=== PATIENT | male | born 1970 | race African-American/Black ===

== ENCOUNTER 2017-01-21 19:58 | Inpatient (IN) ==
--- NOTE | 2017-01-21 20:26 | Emergency Department Note ---
Arrival - Arrival Chief Complaint: Chest Pain Stated Complaint: chest pains/sob ED Nursing Triage Note: patient c/o sharp left sided cp and shortness of breath that gets worse while taking a deep breath and upon movement. 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 The patient is concerned about possible recurrent pulmonary embolus. Allergies/Adverse Reactions: Allergies Allergy/AdvReac Type Severity Reaction Status Date / Time No Known Allergies Allergy Verified 01/21/17 20:07 Home Medications: Home Medications Medication Instructions Recorded Confirmed Type Aspirin [Ecotrin] 81 mg PO DAILY 01/21/17 01/21/17 History Review of System - Review of System Constitutional: Absent: fever, night sweats Eyes: Absent: redness, vision change, other Head/Ears/Nose/Throat: Absent: epistaxis, nasal drainage Respiratory: Present: other (Shortness of breath). Absent: respiratory distress , wheezing Cardiovascular: Present: chest pain, other Gastrointestinal: Absent: diarrhea, constipation Genitourinary male: Absent: hematuria, discharge Musculoskeletal: Absent: joint swelling, lower back pain Skin: Absent: change in color, change in hair/nails Neurological: Absent: numbness, paresthesias Psychiatric: Absent: suicidal thoughts, homicidal thoughts Endocrine: Absent: heat intolerance, polydipsia Hematological/Lymphatic: Absent: easy bruising, lymphadenopathy Allergic/Immunologic: Absent: urticaria, itchy eyes Medical,Surgical,& Family Hx - Medical History Respiratory: History of: Pulmonary Embolism - Social History Smoking Status: Smoker, status unknown Frequency of Alcohol Use: Occasionally Type of Drug Use: None Exam Vital Signs: Vital Signs Temperature 98.1 F 01/24/17 04:00 Pulse Rate 74 01/24/17 04:00 Respiratory Rate 20 01/24/17 06:05 Blood Pressure 136/81 01/24/17 04:00 O2 Sat by Pulse Oximetry 94 L 01/24/17 04:00 - General Exam limited due to: ALOC General appearance: alert - Eye Eye exam: Present: PERRL, EOMI - ENT ENT exam: Present: normal exam, normal oropharynx - Neck Neck exam: Present: normal inspection, full ROM - Chest Chest inspection: Present: normal inspection - Respiratory Respiratory exam: Present: normal lung sounds bilaterally - Cardiovascular Cardiovascular exam: Present: tachycardia - Abdominal Exam Abdominal exam: Present: soft, normal bowel sounds - Rectal Exam Rectal exam: Present: deferred - Back Exam Back exam: Present: normal inspection, full ROM - Neurological Exam Neurological exam: Present: alert, oriented X3, CN II-XII intact - Psychiatric Psychiatric exam: Present: normal affect - Skin Skin exam: Present: dry Results - Labs CBC & BMP: 01/22/17 04:55 01/21/17 20:31 Disposition Disposition: Still a Patient
[2017-01-21 20:38] LABS: Basophils # 0.1 10*3/uL (0.0-0.2); Basophils % 0.4 % (0.0-0.8); Eosinophils % 0.3 % (0.00-10.9); Hematocrit 40.6 VOL% (42.0-52.0); Hemoglobin 13.7 GM/DL (14.0-18.0); Immature Granulocytes % 0.2 %; Immature Granulocytes Absolute 0.03 #; Lymphocytes # 2.4 10*3/uL (1.4-4.0); Lymphocytes % 17.5 % (21.2-54.2); Mean Corpuscular HGB Conc 33.7 GM/DL (32-36); Mean Corpuscular Hemoglobin 31 PG (27-34); Mean Corpuscular Volume 90.6 FL (87-102); Mean Platelet Volume 8.9 FL (9.6-12.0); Monocytes # 1.2 10*3/uL (0.11-0.8); Monocytes % 8.7 % (1.7-12.7); Neutrophils # 9.8 10*3/uL (1.4-7.4); Neutrophils % 72.9 % (38.7-73.9); Platelet Count 274 T/CUMM (130-400); Red Blood Count 4.48 MC/CUMM (3.8-5.5); White Blood Count 13.4 T/CUMM (4-12)
[2017-01-21 21:05] LABS: Alanine Aminotransferase 24 U/L (16-61); Albumin 3.8 G/DL (3.4-5.0); Alkaline Phosphatase 73 U/L (45-117); Aspartate Amino Transferase 13 U/L (0-37); Bilirubin,Total < 0.39 MG/DL (0.2-1.0); Blood Urea Nitrogen 14 MG/DL (7-18); Calcium 9.2 MG/DL (8.5-10.1); Glucose 105 MG/DL (74-106); Osmolality,Calculated 275.7 MOS/KG (273-304); Potassium 3.9 MMOL/L (3.5-5.1); Sodium 138 MMOL/L (136-145); Total Protein 7.4 G/DL (6.4-8.3)
[2017-01-21] MEDS ORDERED: ONDANSETRON 4 MG/2 ML VIAL IV PRN (22:56)
[2017-01-21] MEDS ORDERED: ACETAMINOPHEN 325 MG TABLET PO PRN (22:56)
[2017-01-21] MEDS ORDERED: HEPARIN 5,000 UNIT/1 ML VIAL IV ONE (23:05)
[2017-01-21] MEDS ORDERED: MORPHINE 2 MG/1 ML SYRINGE IV STA (23:10)
[2017-01-21] MEDS ORDERED: ONDANSETRON 4 MG/2 ML VIAL IV STA (23:11)
--- NOTE | 2017-01-21 23:11 | Hospitalist History & Physical ---
Assessment and Plan (1) Pulmonary embolism Status: Acute Assessment and plan: Possibly from the the DVT right leg I will check venous Dopplers but start on heparin infusion. Patient does seem to have a provoked thromboembolic event but if DVT is negative he may need to be evaluated for hypercoagulable state. I have ordered for the baseline PT PTT and then start on IV infusion following the loading dose. PT OT will be monitored per protocol Current Visit: Yes (2) Elevated blood pressure reading Status: Acute Assessment and plan: Patient has elevated blood pressure without any known hypertension. He is not on any medication. I will start on low sodium diet he does seem to have a stage II have hypertension if his repeat blood pressure elevated like this is in in the morning. Since he is asymptomatic for his hypertension I will wait for repeat blood pressure measurement in the morning and medication to be started if indicated Current Visit: Yes History of Present Illness Chief complaint: Chest pain History of present illness: Mr. Dumont is a 46 year old male with history of pulmonary embolism in past in 2011. He was on Coumadin but stopped last year and placed on aspirin. Patient is a on [place] on [address]. He came to the ER for evaluation of chest pain which is left-sided started yesterday and worse today with some shortness of breath but no cough. Subjective report of some fever yesterday. In ER patient was evaluated noted WBC 13.4 but afebrile with a temp 99.2 heart rate in low 100. CT scan of the chest was done and was reported to have a pulmonary embolism which report not available. Patient on inquiry does admit some pain right leg with swelling and he attributed to tendinitis. No nausea vomiting diarrhea or diaphoresis no urinary symptoms. Patient O2 sat was 95% on room air in ER. Troponin level was within normal limit BNP level was 10. I was consulted for admission Home Medications Medication Instructions Recorded Confirmed Type Aspirin [Ecotrin] 81 mg PO DAILY 01/21/17 01/21/17 History Allergies Allergy/AdvReac Type Severity Reaction Status Date / Time No Known Allergies Allergy Verified 01/21/17 20:07 Medical,Surgical,& Family Hx - Medical History Respiratory: History of: Pulmonary Embolism - Surgical History Surgical History: noncontributory - Family History Additional Family History: No history of thromboembolic event in the family - Social History Smoking Status: Current some day smoker Frequency of Alcohol Use: Occasionally Type of Drug Use: None 12 point system: reviewed and no additional remarkable complaints except as stated (Noted in HPI) Exam - Constitutional Vitals: Period Temp Pulse Resp BP Sys/Cortez Pulse Ox Last 24 Hr 99.2 F-99.2 F 100-105 15-20 170-170/97-97 94 General appearance: morbidly obese, no no acute distress - Head Head exam: Present: normal inspection, normocephalic, atraumatic - Eye Eye exam: Present: EOMI. Absent: conjunctival injection Pupils: Present: BOB, normal accommodation - ENT ENT exam: Present: normal exam, normal oropharynx - Neck Neck exam: Present: normal inspection (Supple), other - Respiratory Respiratory exam: Present: clear to auscultation bilaterally. Absent: accessory muscle use, rales, rhonchi, stridor - Cardiovascular Cardiovascular exam: Present: regular rate and rhythm, tachycardia - GI/Abdominal GI/Abdominal exam: Present: normal bowel sounds, soft. Absent: distended, tenderness - Extremities Exam Extremities exam: Present: edema (Right lower extremity edema present) - Neurological Exam Neurological exam: Present: alert, oriented X3, motor sensory deficit Results - Labs CBC & BMP: 01/21/17 20:31 01/21/17 20:31 Lab Results: I have reviewed the past 24 hour labs Quality Measures - VTE Contraindication to Pharmacological VTE Prophylaxis: Already on Theraputic Agent , No Prophylaxis Needed
[2017-01-21] MEDS ORDERED: MORPHINE 2 MG/1 ML SYRINGE ONE (23:18)
[2017-01-21 23:31] LABS: PT Patient Result 10.4 SECS; Partial Thromboplastin Time 29.4 SECS (0-40)
[2017-01-22] MEDS ORDERED: HYDROmorphone 2 MG/1 ML VIAL IV STA (00:09)
[2017-01-22] MEDS ORDERED: HYDROmorphone 2 MG/1 ML VIAL ONE (00:12)
[2017-01-22] MEDS: HEPARIN DRIP 25,000 UNITS/500 ML PREMIX IV SCH ×3 (01:31→21:01)
[2017-01-22 05:19] LABS: Basophils % 0.3 % (0.0-0.8); Eosinophils % 0.1 % (0.00-10.9); Hematocrit 39.3 VOL% (42.0-52.0); Immature Granulocytes % 0.3 %; Immature Granulocytes Absolute 0.03 #; Lymphocytes # 2.1 10*3/uL (1.4-4.0); Lymphocytes % 17.3 % (21.2-54.2); Mean Corpuscular HGB Conc 33.1 GM/DL (32-36); Mean Corpuscular Hemoglobin 30 PG (27-34); Mean Corpuscular Volume 90.6 FL (87-102); Mean Platelet Volume 9.1 FL (9.6-12.0); Monocytes # 1.2 10*3/uL (0.11-0.8); Monocytes % 10.3 % (1.7-12.7); Neutrophils # 8.6 10*3/uL (1.4-7.4); Neutrophils % 71.7 % (38.7-73.9); Platelet Count 270 T/CUMM (130-400); Red Blood Count 4.34 MC/CUMM (3.8-5.5); Red Cell Distribution Width 13.1 % (9.3-17.3)
--- NOTE | 2017-01-22 08:27 | EKG Report ---
Stationary ECG Study [facility] ER Test Date: 01/21/2017 8:05:57 PM Pat Name: ISREAL ROSARIO Department: Room: 278 Gender: M Chief Cardiopulmonary Technologist: Sherry : 1970 Requested by: Roby Quach Order Number: [id number] Reading MD: MERARY RUIZ Intervals [place] Rate: 106 P: 39 CO: 148 QRS: -12 QRSD: 97 T: 116 QT: 340 QTc: 402 Interpretive Statements SINUS TACHYCARDIA LEFT VENTRICULAR HYPERTROPHY WITH REPOLARIZATION ABNORMALITY Electronically Signed On 01-23-17 07:30:13 CDT by MERARY RUIZ [email or web address]
--- NOTE | 2017-01-22 08:43 | Ultrasound Report ---
History: Pulmonary embolus. Shortness of breath Date: 01/22/2017 Study: Bilateral lower extremity color-flow venous Doppler study Comparison exam: No previous venous ultrasound available Critical test result. Verbal report given to Nicki KEARNEY at 8:10 AM by the planner on behalf of this radiologist. Color Doppler, wave form analysis, and compression analysis of the deep veins of both lower extremities from the common femoral vein level through the popliteal vein level was performed. There is no evidence of deep venous thrombosis on the left. There is abnormal increased intraluminal echogenicity and lack of compression compatible with nonoccluding deep venous thrombosis in the right superficial femoral vein and superior aspect of the right popliteal vein. The right common femoral vein is patent. Waveform analysis is otherwise unremarkable. Ultrasound images were captured and archived Impression: Deep venous thrombosis right lower extremity PROCEDURE INTERPRETED AT [facility] DEPARTMENT OF RADIOLOGY Final Report Signed by: Dr. Maureen Izquierdo
--- NOTE | 2017-01-22 10:04 | CT Report ---
History: Chest pain. Shortness of breath Date: 01/21/2017 Study: CT chest with IV contrast with pulmonary embolus technique Comparison exam: No previous similar study available for comparison The study was also reviewed by [facility]. Critical test result: Verbal report was given to Dr. Dr. Quach by telephone at 10:27 PM by the [facility] physician Spiral CT sections were obtained through the lungs following the IV administration of 100 mL of Omnipaque 350 without immediate complication. Multiplanar reconstruction images are also available. The CT exam was performed using one or more of the following dose reduction techniques: Automated exposure control, adjustment of the mA and/or kV according to patient size, or use of iterative reconstruction technique. There is abnormal cylindrical filling defect compatible with acute pulmonary embolic disease involving the distal aspect of the main left pulmonary artery with extension to the left upper lobe pulmonary artery branch and descending left pulmonary artery. There is also suspected extension of thrombus into multiple left lower lobe segmental branches. The right ventricle to left ventricle ratio measures 1.0. There is no reflux of contrast into the intrahepatic IVC. There is no thoracic aortic aneurysm or dissection. There is no mediastinal mass or mediastinal lymphadenopathy. There is at least mild coronary artery calcification involving the left anterior descending coronary artery. There is no significant pleural effusion. There is no significant pericardial effusion. There is patchy and strandy and hazy atelectasis/infiltrate in the left lower lobe more so than in the lingula and right lower lobe. There is mild scattered thoracic spondylosis. Impression: Large pulmonary embolus in the distal aspect of the left main pulmonary artery with extension into left upper lobe and left lower lobe branches. Left greater than right bibasilar atelectasis/infiltrate PROCEDURE INTERPRETED AT [facility] DEPARTMENT OF RADIOLOGY Final Report Signed by: Dr. Maureen Izquierdo
--- NOTE | 2017-01-22 14:59 | Hospitalist Progress Note ---
Assessment and Plan (1) Pulmonary embolism Status: Acute Assessment and plan: Continue heparin in the meantime start the patient on Coumadin 5 mg p.o. at 1800 hrs. Check PT/INRs every day in the morning. Target his INR between 2 and 3. After INR reaches 2 every meal be discontinued patient should be discharged. Follow-up with his primary care provider for Coumadin monitoring. Current Visit: Yes (2) Elevated blood pressure reading Status: Acute Assessment and plan: Continue blood pressure medication target blood pressure 130/80. Start him on amlodipine 5 mg daily. Current Visit: Yes Hospitalist: Subjective Interval history: Patient has been seen interviewed and examined and chart has been reviewed for details gentleman admitted to the hospital shortness of breath found to have pulmonary embolism. Patient is currently on heparin and should be started on Coumadin. I will start him on Coumadin 5 mg daily with daily PT/INRs to be drawn. Exam - Constitutional Vitals: Period Temp Pulse Resp BP Sys/Cortez Pulse Ox Last 24 Hr 98.3 F-99.2 F 79-105 15-20 134-170/77-97 93-97 General appearance: morbidly obese - Head Head exam: Present: normocephalic, atraumatic - Eye Eye exam: Present: EOMI Pupils: Present: BOB - ENT ENT exam: Present: normal exam - Neck Neck exam: Present: normal inspection - Respiratory Respiratory exam: Present: clear to auscultation bilaterally - Cardiovascular Cardiovascular exam: Present: regular rate and rhythm - GI/Abdominal GI/Abdominal exam: Present: normal bowel sounds, soft - Extremities Exam Extremities exam: Present: full ROM - Back Exam Back exam: Present: normal inspection - Neurological Exam Neurological exam: Present: alert, oriented X3, CN II-XII intact - Psychiatric Psychiatric exam: Present: normal affect, normal mood - Skin Skin exam: Present: normal color, warm, dry Results - Labs CBC & BMP: 01/22/17 04:55 01/21/17 20:31 Lab Results: I have reviewed the past 24 hour labs Quality Measures - VTE Contraindication to Pharmacological VTE Prophylaxis: Already on Theraputic Agent , No Prophylaxis Needed
[2017-01-22] MEDS: amLODIPine 5 MG TABLET PO SCH (16:08)
[2017-01-22] MEDS: WARFARIN 5 MG TABLET PO SCH (18:28)
[2017-01-23 05:47] LABS: INR 1.1; PT Patient Result 11.2 SECS
[2017-01-23] MEDS: HEPARIN DRIP 25,000 UNITS/500 ML PREMIX IV SCH ×4 (07:21→22:42)
[2017-01-23] MEDS: amLODIPine 5 MG TABLET PO SCH (08:56)
--- NOTE | 2017-01-23 11:19 | Hospitalist Progress Note ---
Assessment and Plan (1) Pulmonary embolism Status: Acute Assessment and plan: Continue heparin in the meantime start the patient on Coumadin 5 mg p.o. at 1800 hrs. Check PT/INRs every day in the morning. Target his INR between 2 and 3. After INR reaches 2 every meal be discontinued patient should be discharged. Follow-up with his primary care provider for Coumadin monitoring. Current Visit: Yes (2) Elevated blood pressure reading Status: Acute Assessment and plan: Continue blood pressure medication target blood pressure 130/80. Start him on amlodipine 5 mg daily. Current Visit: Yes Hospitalist: Subjective Interval history: Patient has been seen interviewed and examined and chart has been reviewed to the hospital with shortness of breath found to have low pulmonary embolism. So patient is doing well heparin. INR today is only 1.1 with a second dose of Coumadin 5 mg at 6 PM. Exam - Constitutional Vitals: Period Temp Pulse Resp BP Sys/Cortez Pulse Ox Last 24 Hr 97.8 F-99.3 F 77-93 16-20 130-162/76-94 90-95 General appearance: morbidly obese - Head Head exam: Present: normocephalic, atraumatic - Eye Eye exam: Present: EOMI Pupils: Present: BOB - ENT ENT exam: Present: normal exam - Neck Neck exam: Present: normal inspection - Respiratory Respiratory exam: Present: clear to auscultation bilaterally, other (Wheezing no rhonchi no respiratory distress) - Cardiovascular Cardiovascular exam: Present: regular rate and rhythm - GI/Abdominal GI/Abdominal exam: Present: normal bowel sounds, soft, other (Obese abdomen) - Extremities Exam Extremities exam: Present: full ROM - Neurological Exam Neurological exam: Present: alert, oriented X3, CN II-XII intact - Psychiatric Psychiatric exam: Present: normal affect, normal mood - Skin Skin exam: Present: normal color, warm, dry Results - Labs CBC & BMP: 01/22/17 04:55 01/21/17 20:31 Lab Results: I have reviewed the past 24 hour labs Quality Measures - VTE Contraindication to Pharmacological VTE Prophylaxis: Already on Theraputic Agent , No Prophylaxis Needed
[2017-01-23] MEDS: WARFARIN 5 MG TABLET PO SCH (18:09)
[2017-01-24 05:29] LABS: PT Patient Result 10.9 SECS
[2017-01-24] MEDS: HEPARIN DRIP 25,000 UNITS/500 ML PREMIX IV SCH ×3 (07:05→23:29)
[2017-01-24] MEDS: amLODIPine 5 MG TABLET PO SCH (10:25)
--- NOTE | 2017-01-24 11:39 | Hospitalist Progress Note ---
Assessment and Plan (1) Pulmonary embolism Status: Acute Assessment and plan: He is presently being treated with heparin and warfarin. His INR today is 1.1. I have increased his warfarin from 5 mg p.o. daily to 10 mg p.o. daily. Current Visit: Yes Hospitalist: Subjective Interval history: Patient was hospitalized with a pulmonary embolism. He has been treated with intravenous heparin and oral warfarin. He is INR today is 1.1. I will increase his warfarin dose from 5 mg p.o. daily to 10 mg p.o. daily. He has no complaints. He is feeling well with no shortness of breath or chest pain. Exam - Constitutional Vitals: Period Temp Pulse Resp BP Sys/Cortez Pulse Ox Last 24 Hr 97.8 F-98.9 F 71-89 18-20 123-159/59-92 90-97 General appearance: normal weight, no acute distress - Head Head exam: Present: normal inspection - Neck Neck exam: Present: normal inspection - Respiratory Respiratory exam: Present: clear to auscultation bilaterally - Cardiovascular Cardiovascular exam: Present: regular rate and rhythm - GI/Abdominal GI/Abdominal exam: Present: normal bowel sounds, soft, other (Nontender with no palpable masses or hepatosplenomegaly.) - Extremities Exam Extremities exam: Present: normal inspection - Back Exam Back exam: Present: normal inspection - Neurological Exam Neurological exam: Present: alert, oriented X3 - Psychiatric Psychiatric exam: Present: normal affect, normal mood - Skin Skin exam: Present: normal color, warm Results - Labs CBC & BMP: 01/22/17 04:55 01/21/17 20:31 Quality Measures - VTE Contraindication to Pharmacological VTE Prophylaxis: Already on Theraputic Agent , No Prophylaxis Needed Specialty Discharge - Follow Up or Referrals
[2017-01-24 12:18] LABS: PT Patient Result 10.9 SECS
[2017-01-24] MEDS ORDERED: WARFARIN 3 MG TABLET PO SCH (18:00)
[2017-01-24] MEDS ORDERED: WARFARIN 10 MG TABLET PO SCH (18:00)
[2017-01-24] MEDS ORDERED: WARFARIN 5 MG TABLET ONE (18:27)
[2017-01-25 01:25] LABS: Basophils # 0.1 10*3/uL (0.0-0.2); Basophils % 0.6 % (0.0-0.8); Eosinophils # 0.2 10*3/uL (0.0-0.87); Eosinophils % 2.5 % (0.00-10.9); Hematocrit 37.5 VOL% (42.0-52.0); Hemoglobin 12.7 GM/DL (14.0-18.0); Immature Granulocytes % 0.2 %; Immature Granulocytes Absolute 0.02 #; Lymphocytes # 2.4 10*3/uL (1.4-4.0); Lymphocytes % 26.6 % (21.2-54.2); Mean Corpuscular HGB Conc 33.9 GM/DL (32-36); Mean Corpuscular Hemoglobin 30 PG (27-34); Mean Corpuscular Volume 89.5 FL (87-102); Mean Platelet Volume 8.7 FL (9.6-12.0); Monocytes # 0.8 10*3/uL (0.11-0.8); Monocytes % 8.4 % (1.7-12.7); Neutrophils # 5.5 10*3/uL (1.4-7.4); Neutrophils % 61.7 % (38.7-73.9); Platelet Count 326 T/CUMM (130-400); Red Blood Count 4.19 MC/CUMM (3.8-5.5); Red Cell Distribution Width 13.1 % (9.3-17.3); White Blood Count 8.9 T/CUMM (4-12)
[2017-01-25 01:44] LABS: PT Patient Result 10.5 SECS
[2017-01-25 02:11] LABS: Calcium 8.8 MG/DL (8.5-10.1); Osmolality,Calculated 276.5 MOS/KG (273-304); Potassium 3.5 MMOL/L (3.5-5.1)
[2017-01-25] MEDS: HEPARIN DRIP 25,000 UNITS/500 ML PREMIX IV SCH ×3 (07:00→23:16)
[2017-01-25] MEDS: amLODIPine 5 MG TABLET PO SCH (09:18)
--- NOTE | 2017-01-25 11:20 | Hospitalist Progress Note ---
Assessment and Plan (1) Pulmonary embolism Status: Acute Assessment and plan: He is presently being treated with heparin and warfarin. His INR today is 1.1. I have increased his warfarin to 15 mg p.o. daily. Current Visit: Yes Hospitalist: Subjective Interval history: He is comfortable with no complaints. He is not experiencing chest pain, shortness of breath, or coughing. His INR today is 1.0. I have increased his warfarin to 15 mg p.o. daily. He continues to receive intravenous heparin. Exam - Constitutional Vitals: Period Temp Pulse Resp BP Sys/Cortez Pulse Ox Last 24 Hr 97.9 F-98.4 F 67-94 16-20 109-155/66-87 90-97 General appearance: normal weight, no acute distress - Head Head exam: Present: normal inspection - Neck Neck exam: Present: normal inspection - Respiratory Respiratory exam: Present: clear to auscultation bilaterally - Cardiovascular Cardiovascular exam: Present: regular rate and rhythm - GI/Abdominal GI/Abdominal exam: Present: normal bowel sounds, soft, other (Nontender with no palpable masses or hepatosplenomegaly.) - Extremities Exam Extremities exam: Present: normal inspection - Neurological Exam Neurological exam: Present: alert, oriented X3 - Psychiatric Psychiatric exam: Present: normal affect - Skin Skin exam: Present: normal color, warm, intact Results - Labs CBC & BMP: 01/25/17 01:15 01/25/17 01:15 Quality Measures - VTE Contraindication to Pharmacological VTE Prophylaxis: Already on Theraputic Agent , No Prophylaxis Needed Specialty Discharge - Follow Up or Referrals
[2017-01-25] MEDS ORDERED: WARFARIN 7.5 MG TABLET PO SCH (18:00)
[2017-01-26 05:58] LABS: INR 1.2; PT Patient Result 12.5 SECS
[2017-01-26] MEDS: HEPARIN DRIP 25,000 UNITS/500 ML PREMIX IV SCH ×3 (06:36→22:28)
[2017-01-26] MEDS: amLODIPine 5 MG TABLET PO SCH (09:00)
--- NOTE | 2017-01-26 09:09 | Hospitalist Progress Note ---
Assessment and Plan (1) Pulmonary embolism Status: Acute Assessment and plan: He is presently being treated with heparin and warfarin. His INR today is 1.2. I have increased his warfarin to 20 mg p.o. daily. Current Visit: Yes Qualifiers: Chronicity: acute Acute cor pulmonale presence: without acute cor pulmonale Hospitalist: Subjective Interval history: Patient is doing well with no complaints. He is not experiencing shortness of breath, chest pain, or coughing. His INR today is 1.2 on warfarin 15 mg p.o. daily. I will increase his warfarin to 20 mg p.o. daily. Exam - Constitutional Vitals: Period Temp Pulse Resp BP Sys/Cortez Pulse Ox Last 24 Hr 98.0 F-98.8 F 66-103 18-18 123-137/79-85 92-96 General appearance: normal weight, no acute distress - Head Head exam: Present: normal inspection - Neck Neck exam: Present: normal inspection - Respiratory Respiratory exam: Present: clear to auscultation bilaterally - Cardiovascular Cardiovascular exam: Present: regular rate and rhythm - GI/Abdominal GI/Abdominal exam: Present: normal bowel sounds, soft, other (Nontender with no palpable masses or hepatosplenomegaly.) - Extremities Exam Extremities exam: Present: normal inspection - Neurological Exam Neurological exam: Present: alert, oriented X3 - Skin Skin exam: Present: normal color, warm, intact Results - Labs CBC & BMP: 01/25/17 01:15 01/25/17 01:15 Quality Measures - VTE Contraindication to Pharmacological VTE Prophylaxis: Already on Theraputic Agent , No Prophylaxis Needed Specialty Discharge - Follow Up or Referrals
--- NOTE | 2017-01-26 14:00 | Physician Query Form ---
CLICK EDIT DOCUMENT TO SELECT QUERY ANSWER --> OK --> SIGN Kinza Barber RN Clinical Business Records Manager W) [phone] (f) [phone] [email or web address] PROVIDERS: Make your selection(s) from the choices in EACH section by typing an "x" and enter comments in the comment section. Please use your independent medical judgment in providing your response. This request does not imply that any particular answer is desired or expected. CLINICAL INDICATORS: (Providers should not edit this section) Venous doppler ultrasound report states "There is abnormal increased intraluminal echogenicity and lack of compression compatible with nonoccluding deep venous thrombosis in the right superficial femoral vein and superior aspect of the right popliteal vein. Impression: Deep venous thrombosis right lower extremity". Pt. treated with anticoagulant. Radiology Findings: Deep venous thrombosis right lower extremity Abnormal Radiology findings are not reported unless an authorized provider indicates their clinical significance Please select the best choice: ( ) I agree with the Radiology findings ( ) I disagree with the Radiology findings ( ) No clinical significance or incidental finding ( ) Other/clarification of findings, please specify: ( ) Clinically unable to determine COMMENTS: PLEASE ALSO DOCUMENT RESPONSE IN PROGRESS NOTES AND/OR DISCHARGE SUMMARY Use of terms such as suspected, likely, or probable (associated with a specific diagnosis that is being evaluated, monitored, or treated as if it exists) are acceptable and can be restated in the discharge summary if not ruled out. MTDD
[2017-01-26] MEDS: WARFARIN 10 MG TABLET PO SCH (17:12)
[2017-01-27 02:46] LABS: Basophils # 0.1 10*3/uL (0.0-0.2); Basophils % 0.6 % (0.0-0.8); Eosinophils # 0.3 10*3/uL (0.0-0.87); Eosinophils % 3.9 % (0.00-10.9); Hematocrit 37.1 VOL% (42.0-52.0); Hemoglobin 12.3 GM/DL (14.0-18.0); Immature Granulocytes % 0.4 %; Immature Granulocytes Absolute 0.03 #; Lymphocytes # 2.7 10*3/uL (1.4-4.0); Lymphocytes % 35.3 % (21.2-54.2); Mean Corpuscular HGB Conc 33.2 GM/DL (32-36); Mean Corpuscular Hemoglobin 30 PG (27-34); Mean Corpuscular Volume 90.5 FL (87-102); Mean Platelet Volume 8.5 FL (9.6-12.0); Monocytes # 0.7 10*3/uL (0.11-0.8); Monocytes % 8.6 % (1.7-12.7); Neutrophils % 51.2 % (38.7-73.9); Platelet Count 360 T/CUMM (130-400); Red Cell Distribution Width 12.9 % (9.3-17.3); White Blood Count 7.8 T/CUMM (4-12)
[2017-01-27 03:15] LABS: INR 1.5; PT Patient Result 16.7 SECS
[2017-01-27 03:17] LABS: Osmolality,Calculated 277.4 MOS/KG (273-304); Potassium 4.1 MMOL/L (3.5-5.1)
[2017-01-27] MEDS: HEPARIN DRIP 25,000 UNITS/500 ML PREMIX IV SCH ×3 (05:27→23:18)
--- NOTE | 2017-01-27 08:23 | Physician Query Form ---
CLICK EDIT DOCUMENT TO SELECT QUERY ANSWER --> OK --> SIGN Kinza Barber RN Clinical Television Specialist W) [phone] (f) [phone] [email or web address] PROVIDERS: Make your selection(s) from the choices in EACH section by typing an "x" and enter comments in the comment section. Please use your independent medical judgment in providing your response. This request does not imply that any particular answer is desired or expected. CLINICAL INDICATORS: (Providers should not edit this section) Venous doppler ultrasound report states "There is abnormal increased intraluminal echogenicity and lack of compression compatible with nonoccluding deep venous thrombosis in the right superficial femoral vein and superior aspect of the right popliteal vein. Impression: Deep venous thrombosis right lower extremity". Pt. treated with anticoagulant. Radiology Findings: Deep venous thrombosis right lower extremity Abnormal Radiology findings are not reported unless an authorized provider indicates their clinical significance Please select the best choice: (x ) I agree with the Radiology findings ( ) I disagree with the Radiology findings ( ) No clinical significance or incidental finding ( ) Other/clarification of findings, please specify: ( ) Clinically unable to determine COMMENTS: PLEASE ALSO DOCUMENT RESPONSE IN PROGRESS NOTES AND/OR DISCHARGE SUMMARY Use of terms such as suspected, likely, or probable (associated with a specific diagnosis that is being evaluated, monitored, or treated as if it exists) are acceptable and can be restated in the discharge summary if not ruled out. MTDD
--- NOTE | 2017-01-27 09:05 | Hospitalist Progress Note ---
<Yonas Shah - Last Filed: 01/27/17 09:03> Assessment and Plan (1) Elevated blood pressure reading Status: Acute Assessment and plan: Blood pressures are within normal limits. We will continue to monitor and provide supportive measures. Current Visit: Yes (2) Pulmonary embolism Status: Acute Assessment and plan: Patient is currently being treated with both Coumadin and heparin. INR today is noted at 1.5. We will continue Coumadin at 20 mg today and recheck INR in a.m. Current Visit: Yes Qualifiers: Chronicity: acute Acute cor pulmonale presence: without acute cor pulmonale Hospitalist: Subjective Interval history: The patient was seen and evaluated. No significant overnight events. Remains on heparin infusion; Coumadin bridge has been initiated. INR today is noted at 1.5. We will adjust Coumadin dose. And recheck INR in a.m. Exam - Constitutional Vitals: Period Temp Pulse Resp BP Sys/Cortez Pulse Ox Last 24 Hr 97.6 F-98.5 F 64-80 18-24 120-147/72-87 95-98 General appearance: normal weight, no acute distress - Head Head exam: Present: normal inspection, normocephalic - Eye Eye exam: Present: EOMI, conjunctival injection Pupils: Present: BOB, normal accommodation - ENT ENT exam: Present: normal exam, normal external ear exam, normal oropharynx - Neck Neck exam: Present: normal inspection. Absent: lymphadenopathy, meningismus, thyromegaly - Respiratory Respiratory exam: Present: clear to auscultation bilaterally. Absent: rales, rhonchi, stridor, wheezes - Cardiovascular Cardiovascular exam: Present: regular rate and rhythm. Absent: carotid bruit, diastolic murmur, gallop, JVD, rubs, systolic murmur - GI/Abdominal GI/Abdominal exam: Present: normal bowel sounds, soft - Extremities Exam Extremities exam: Present: normal inspection, normal capillary refill, full ROM. Absent: edema - Back Exam Back exam: Present: normal inspection - Neurological Exam Neurological exam: Present: alert, oriented X3, CN II-XII intact - Psychiatric Psychiatric exam: Present: normal affect, normal mood - Skin Skin exam: Present: normal color, warm Results - Labs CBC & BMP: 01/27/17 02:40 01/27/17 02:40 Lab Results: I have reviewed the past 24 hour labs Quality Measures - VTE Contraindication to Pharmacological VTE Prophylaxis: Already on Theraputic Agent , No Prophylaxis Needed Specialty Discharge - Follow Up or Referrals <Kelton Armenta - Last Filed: 01/27/17 10:15> Assessment and Plan (1) Pulmonary embolism Status: Acute Current Visit: Yes Qualifiers: Chronicity: acute Acute cor pulmonale presence: without acute cor pulmonale Hospitalist: Subjective Interval history: As noted above, his INR today is 1.5 on warfarin 20 mg p.o. daily. He continues on intravenous heparin. I will continue his present dose of warfarin at 20 mg p.o. daily. Exam - Constitutional Vitals: Period Temp Pulse Resp BP Sys/Cortez Pulse Ox Last 24 Hr 97.6 F-98.5 F 64-80 18-24 120-147/72-87 95-98 Results - Labs CBC & BMP: 01/27/17 02:40 01/27/17 02:40
[2017-01-27] MEDS: amLODIPine 5 MG TABLET PO SCH (10:07)
[2017-01-27] MEDS ORDERED: WARFARIN 5 MG TABLET ONE (18:18)
[2017-01-27] MEDS: WARFARIN 10 MG TABLET PO SCH (18:40)
[2017-01-28 05:22] LABS: Basophils # 0.1 10*3/uL (0.0-0.2); Basophils % 0.8 % (0.0-0.8); Eosinophils # 0.3 10*3/uL (0.0-0.87); Eosinophils % 4.3 % (0.00-10.9); Hematocrit 37.4 VOL% (42.0-52.0); Hemoglobin 12.3 GM/DL (14.0-18.0); Immature Granulocytes % 0.4 %; Immature Granulocytes Absolute 0.03 #; Lymphocytes # 2.9 10*3/uL (1.4-4.0); Lymphocytes % 38.4 % (21.2-54.2); Mean Corpuscular HGB Conc 32.9 GM/DL (32-36); Mean Corpuscular Hemoglobin 30 PG (27-34); Mean Corpuscular Volume 91.2 FL (87-102); Mean Platelet Volume 8.8 FL (9.6-12.0); Monocytes # 0.7 10*3/uL (0.11-0.8); Monocytes % 8.8 % (1.7-12.7); Neutrophils # 3.6 10*3/uL (1.4-7.4); Neutrophils % 47.3 % (38.7-73.9); Platelet Count 397 T/CUMM (130-400); White Blood Count 7.5 T/CUMM (4-12)
[2017-01-28 05:33] LABS: INR 1.8
[2017-01-28 05:46] LABS: Partial Thromboplastin Time 103.1 SECS (0-40)
[2017-01-28 06:57] LABS: Alanine Aminotransferase 46 U/L (16-61); Alkaline Phosphatase 81 U/L (45-117); Aspartate Amino Transferase 27 U/L (0-37); Bilirubin,Total < 0.39 MG/DL (0.2-1.0); Calcium 8.4 MG/DL (8.5-10.1); Total Protein 6.9 G/DL (6.4-8.3)
[2017-01-28 06:58] LABS: Albumin 2.9 G/DL (3.4-5.0); Blood Urea Nitrogen 10 MG/DL (7-18); Glucose 95 MG/DL (74-106); Magnesium 2.4 MG/DL (1.8-2.4); Osmolality,Calculated 275.5 MOS/KG (273-304); Sodium 139 MMOL/L (136-145)
--- NOTE | 2017-01-28 08:50 | Hospitalist Progress Note ---
<Chloe Simms - Last Filed: 01/28/17 08:44> Assessment and Plan - Time spent with patient Time spent with patient: Less than 30 minutes (1) Pulmonary embolism Status: Acute Assessment and plan: Patient is currently being treated with both Coumadin (bridging) and heparin. INR today is noted at 1.8 up from 1.5. We will continue Coumadin and recheck INR and labs in a.m. Current Visit: Yes Qualifiers: Chronicity: acute Acute cor pulmonale presence: without acute cor pulmonale (2) Elevated blood pressure reading Status: Acute Assessment and plan: Remains stable without hypertension; will continue to monitor closely. Current Visit: Yes Hospitalist: Subjective Interval history: Patient was seen and chart reviewed. Mr Dumont sleeping well, easily awakened, and verbalizes a good night last night. Denies chest pain, shortness of breath , nausea, vomiting, fever, chills or leg pain. Remains on heparin infusion; bridging to coumadin was initiated on 01/26/17. Today INR is up to 1.8 (from 1.5) ; PTT was 103.1, heparin infusion titration as protocol ordered and will repeat PTT. Exam - Constitutional Vitals: Period Temp Pulse Resp BP Sys/Cortez Pulse Ox Last 24 Hr 97.1 F-98.9 F 62-74 18-20 118-142/64-84 94-97 General appearance: normal weight, no acute distress - Head Head exam: Present: normal inspection - Eye Eye exam: Present: EOMI Pupils: Present: BOB - Neck Neck exam: Present: normal inspection - Respiratory Respiratory exam: Present: clear to auscultation bilaterally - Cardiovascular Cardiovascular exam: Present: regular rate and rhythm - GI/Abdominal GI/Abdominal exam: Present: normal bowel sounds, soft. Absent: tenderness, rebound - Extremities Exam Extremities exam: Present: normal inspection, full ROM. Absent: edema - Neurological Exam Neurological exam: Present: alert, oriented X3 - Psychiatric Psychiatric exam: Present: normal affect, normal mood. Absent: agitated, anxious - Skin Skin exam: Present: normal color, warm, dry Results - Labs CBC & BMP: 01/28/17 04:06 01/28/17 04:06 Lab Results: I have reviewed the past 24 hour labs Labs: PTT 103.1 - Heparin Infusion - repeat PTT to follow per heparin infusion protocol. INR increased to 1.8 (from 1.5) H&H remain stable Vital Signs remain stable Quality Measures - VTE Contraindication to Pharmacological VTE Prophylaxis: Already on Theraputic Agent , No Prophylaxis Needed Specialty Discharge - Follow Up or Referrals <Kelton Armenta - Last Filed: 01/28/17 09:32> Assessment and Plan (1) Pulmonary embolism Status: Acute Current Visit: Yes Qualifiers: Chronicity: acute Acute cor pulmonale presence: without acute cor pulmonale Hospitalist: Subjective Interval history: His INR today is 1.8. I will continue warfarin 20 mg p.o. daily. I expect that he will be ready for discharge tomorrow morning. Exam - Constitutional Vitals: Period Temp Pulse Resp BP Sys/Cortez Pulse Ox Last 24 Hr 97.1 F-98.9 F 62-74 18-20 118-142/64-84 94-97 Results - Labs CBC & BMP: 01/28/17 04:06 01/28/17 04:06
[2017-01-28] MEDS: amLODIPine 5 MG TABLET PO SCH (09:35)
[2017-01-28] MEDS: HEPARIN DRIP 25,000 UNITS/500 ML PREMIX IV SCH ×2 (09:36→23:22)
[2017-01-28] MEDS: WARFARIN 10 MG TABLET PO SCH (18:00)
[2017-01-29 05:19] LABS: Basophils # 0.1 10*3/uL (0.0-0.2); Basophils % 0.8 % (0.0-0.8); Eosinophils # 0.3 10*3/uL (0.0-0.87); Eosinophils % 4.1 % (0.00-10.9); Hematocrit 39.8 VOL% (42.0-52.0); Hemoglobin 13.1 GM/DL (14.0-18.0); Immature Granulocytes % 0.3 %; Immature Granulocytes Absolute 0.02 #; Lymphocytes % 39.8 % (21.2-54.2); Mean Corpuscular HGB Conc 32.9 GM/DL (32-36); Mean Corpuscular Hemoglobin 30 PG (27-34); Mean Corpuscular Volume 91.5 FL (87-102); Mean Platelet Volume 8.8 FL (9.6-12.0); Monocytes # 0.7 10*3/uL (0.11-0.8); Monocytes % 8.7 % (1.7-12.7); Neutrophils # 3.5 10*3/uL (1.4-7.4); Neutrophils % 46.3 % (38.7-73.9); Platelet Count 430 T/CUMM (130-400); Red Blood Count 4.35 MC/CUMM (3.8-5.5); White Blood Count 7.5 T/CUMM (4-12)
[2017-01-29] MEDS: HEPARIN DRIP 25,000 UNITS/500 ML PREMIX IV SCH (05:28)
[2017-01-29 05:50] LABS: Calcium 9.4 MG/DL (8.5-10.1)
[2017-01-29 05:51] LABS: Magnesium 2.5 MG/DL (1.8-2.4); Osmolality,Calculated 275.5 MOS/KG (273-304); Potassium 4.8 MMOL/L (3.5-5.1)
[2017-01-29 07:02] LABS: INR 2.4
[2017-01-29 07:03] LABS: PT Patient Result 27.3 SECS; Partial Thromboplastin Time 116.5 SECS (0-40)
[2017-01-29 08:04] VITALS: BP 107/67
[2017-01-29] MEDS: amLODIPine 5 MG TABLET PO SCH (08:24)
--- NOTE | 2017-01-29 09:14 | Discharge Summary ---
<Kelton Armenta - Last Filed: 01/29/17 09:11> Hospital Course - Hospital Course Hospital Course: Mr Dumont presented to the ED 01/21/17 with PMHx of PE on baby aspirin; with c/o left sided pleuritic chest pain with shortness of breath. While in ED: CT CHEST : Impression: Large pulmonary embolus in the distal aspect of the left main pulmonary artery with extension into left upper lobe and left lower lobe branches.Left greater than right bibasilar atelectasis/infiltrate. EKG: sinus tachycardia with left ventricular hypertrophy with repolarization abnormality, rate 106. . LABS: WBC 13.4; H&H 13.7 & 40.6; INR 1.0; PT 10.4; PTT 29.4; NA 138 ; K 3.9; BUN 14; Creatinine 1.20; AST 13; ALT 24; Alkaline Phos 73; Troponin negative; BNP 10; Hospital medicine was consulted for further evaluation and management of PE/DVT 01/22/17 Venous Doppler Study: Impression: Deep venous thrombosis right lower extremity. Patient was started on Heparin infusion protocol; repeat labs. Coumadin was started on 01/22/17. No more chest pain or shortness of breath were experienced for the remainder of hospitalization. Heparin infusion discontinued, therapeutic INR range achieved at 2.4 and patient will be discharged home today. 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 Evaluation emergency room included a CT scan of the chest demonstrating evidence of pulmonary embolism. He was treated with intravenous heparin and warfarin requiring 20 mg p.o. daily to obtain an INR of 2.4 at the time of discharge. He experienced no complications during his hospitalization. His chest pain rapidly subsided. He experienced no further shortness of breath. An echocardiogram demonstrated normal right and left ventricular systolic function with LVEF 55%. No complaints at time of discharge. Diagnosis - Discharge Diagnosis (1) Pulmonary embolism Status: Acute (2) Hypertension Status: Chronic Specialty Discharge - Follow Up or Referrals Discharge Plan - Discharge Data Condition at Discharge: Stable Discharge Diet: advance to your usual diet Activity: resume usual activities as tolerated Driving: no restrictions - Discharge Medications New amLODIPine [Norvasc] 5 mg PO DAILY #30 tablet Warfarin [Coumadin] 10 mg PO DAILY@1800 #30 tablet Discontinued Aspirin [Ecotrin] 81 mg PO DAILY - Follow Up or Referral - Forms/Instructions Instructions: Warfarin (By mouth) Exam - Constitutional Vitals: Period Temp Pulse Resp BP Sys/Cortez Pulse Ox Last 24 Hr 97.0 F-97.7 F 57-72 16-20 107-145/67-77 93-98 General appearance: no acute distress - Head Head exam: Present: normal inspection - Neck Neck exam: Present: normal inspection - Respiratory Respiratory exam: Present: clear to auscultation bilaterally - Cardiovascular Cardiovascular exam: Present: regular rate and rhythm - GI/Abdominal GI/Abdominal exam: Present: normal bowel sounds, soft - Extremities Exam Extremities exam: Present: normal inspection - Neurological Exam Neurological exam: Present: alert, oriented X3 - Skin Skin exam: Present: normal color, warm, intact Discharge Results Procedures and tests throughout hospitalization: Pending Orders 01/29/17 12:00 PT & PTT Routine Labs on day of discharge: Labs from last 24 hours 01/29/17 01/29/17 01/29/17 06:11 04:00 04:00 WBC 7.5 RBC 4.35 Hgb 13.1 L Hct 39.8 L MCV 91.5 MCH 30 MCHC 32.9 RDW 13.0 Plt Count 430 H MPV 8.8 L Neut % (Auto) 46.3 Lymph % (Auto) 39.8 Mckinley % (Auto) 8.7 Eos % (Auto) 4.1 Baso % (Auto) 0.8 Neut # (Auto) 3.5 Lymph # (Auto) 3.0 Mckinley # (Auto) 0.7 Eos # (Auto) 0.3 Baso # (Auto) 0.1 Immature Gran % 0.3 Nucleated RBC % 0.0 Immature Gran # 0.02 Nucleated RBCs # 0.00 Immature Plt Fraction 0.0 INR 2.4 PT Patient/Control Mix 27.3 D Circ Anticoag PTT 116.5 H* D Sodium 139 Potassium 4.8 Chloride 105 Carbon Dioxide 28 Anion Gap 10.8 BUN 11 Creatinine 1.10 GFR Calculation 145 BUN/Creatinine Ratio 10.00 Glucose 96 Calculated Osmolality 275.5 Calcium 9.4 Magnesium 2.5 H 01/28/17 01/28/17 18:59 12:47 WBC RBC Hgb Hct MCV MCH MCHC RDW Plt Count MPV Neut % (Auto) Lymph % (Auto) Mckinley % (Auto) Eos % (Auto) Baso % (Auto) Neut # (Auto) Lymph # (Auto) Mckinley # (Auto) Eos # (Auto) Baso # (Auto) Immature Gran % Nucleated RBC % Immature Gran # Nucleated RBCs # Immature Plt Fraction INR PT Patient/Control Mix Circ Anticoag PTT 72.4 H D 101.4 H* Sodium Potassium Chloride Carbon Dioxide Anion Gap BUN Creatinine GFR Calculation BUN/Creatinine Ratio Glucose Calculated Osmolality Calcium Magnesium DS: Provider Date of admission: 01/21/17 22:56 Primary care physician: . No PCP Attending physician on admission: Kishor Cheatham MD Consults: 01/22/17 15:08 Consult to Pharmacy [CONS] Routine Reason for Pharmacy Consult: Other Comment: Monitor and dose Coumadin Discharging clinician: Kelton Armenta <Chloe Simms - Last Filed: 01/29/17 10:02> Diagnosis - Discharge Diagnosis (1) Pulmonary embolism Status: Acute (2) Elevated blood pressure reading Status: Acute Exam - Psychiatric Psychiatric exam: Present: normal affect, normal mood
[2017-01-29 12:16] LABS: INR 2.3; Partial Thromboplastin Time 40.2 SECS (0-40)
[2017-01-29 12:24] LABS: PT Patient Result 25.7 SECS
== END 2017-01-29 12:20 | disposition home or self-care (01) | DRG 176 ==
LOC: N.ED 19:58 → SUATTDRO 22:56 → N.EDINP 23:29 → N.TELES 01-22 00:07
PROVIDERS: ADMIT Internal Medicine